=== PATIENT | female | born 1935 ===

== ENCOUNTER 2018-03-03 00:01 | Observation (INO) | payer MEDICARE ==
[2018-03-03 00:01] VITALS: BMI 21.2
--- NOTE | 2018-03-03 01:08 | ED PDOC ---
HPI: General Adult Time Seen by Provider: 03/03/18 00:09 Chief Complaint (Nursing): Flu-like Symptoms Chief Complaint (Provider): Body aches History Per: Patient History/Exam Limitations: no limitations Onset/Duration Of Symptoms: Days (x 3) Current Symptoms Are (Timing): Still Present Additional Complaint(s): 83 year old female with a history of asthma, arthritis and narcolepsy presents to the ED via EMS with diffuse body pain for the last 3 days. Patient denies having a headache, fever, nausea, vomiting or any injury. She also denies taking any pain or anti inflammatory medication. PMD: Dr. Eris Vargas Past Medical History Reviewed: Historical Data, Nursing Documentation, Vital Signs Vital Signs: Last Vital Signs Temp 99.8 F H 03/03/18 16:21 Pulse 83 03/03/18 16:21 Resp 20 03/03/18 16:21 BP 143/64 03/03/18 16:21 Pulse Ox 100 03/03/18 16:21 - Medical History PMH: Asthma, HTN, Hypercholesterolemia Denies: Depression, Chronic Kidney Disease - Surgical History Surgical History: Appendectomy - Family History Family History: States: Unknown Family Hx - Home Medications Home Medications: Ambulatory Orders Medication Instructions Recorded Armodafinil [Nuvigil 250 mg Tab] 250 mg PO DAILY 03/03/18 Cholecalciferol (Vitamin D3) 50,000 unit PO QWK 03/03/18 [Vitamin D3] Metoprolol Succinate XL [Toprol XL] 25 mg PO BID 03/03/18 Montelukast Sodium [Singulair] 10 mg PO DAILY 03/03/18 Omeprazole [Omeprazole] 40 mg PO DAILY 03/03/18 Simvastatin [Zocor] 20 mg PO DAILY 03/03/18 hydroCHLOROthiazide [Hydrodiuril] 25 mg PO DAILY 03/03/18 - Allergies Allergies/Adverse Reactions: Allergies Allergy/AdvReac Type Severity Reaction Status Date / Time aspirin Allergy ANAPHYLAXIS Verified 10/01/17 12:15 FISH Allergy ANAPHYLAXIS Verified 03/03/18 12:28 Fish Containing Products Allergy ANAPHYLAXIS Verified 03/03/18 12:28 fish derived Allergy ANAPHYLAXIS Verified 03/03/18 12:28 fish oil Allergy ANAPHYLAXIS Verified 03/03/18 12:28 peanut Allergy ANAPHYLAXIS Verified 10/01/17 12:15 Penicillins Allergy ANAPHYLAXIS Verified 10/01/17 12:15 Review of Systems ROS Statement: Except As Marked, All Systems Reviewed And Found Negative Constitutional: Positive for: Other (diffuse body aches). Negative for: Fever Gastrointestinal: Negative for: Nausea, Vomiting Neurological: Negative for: Headache Physical Exam - Reviewed Nursing Documentation Reviewed: Yes Vital Signs Reviewed: Yes - Physical Exam Appears: Positive for: Non-toxic, No Acute Distress Head Exam: Positive for: ATRAUMATIC, NORMAL INSPECTION, NORMOCEPHALIC Skin: Positive for: Normal Color, Warm, Dry Eye Exam: Positive for: EOMI, Normal appearance, PERRL Neck: Positive for: Normal, Painless ROM, Supple Cardiovascular/Chest: Positive for: Regular Rate, Rhythm. Negative for: Murmur Respiratory: Positive for: Normal Breath Sounds. Negative for: Wheezing, Respiratory Distress Gastrointestinal/Abdominal: Positive for: Normal Exam, Soft. Negative for: Tenderness Extremity: Positive for: Normal ROM. Negative for: Deformity Neurologic/Psych: Positive for: Alert, Oriented (x 3). Negative for: Motor/ Sensory Deficits - Laboratory Results Result Diagrams: 03/03/18 08:27 03/03/18 08:27 - ECG O2 Sat by Pulse Oximetry: 96 (RA) Pulse Ox Interpretation: Normal Medical Decision Making Medical Decision Makin:10 Impression: 83 y/o female with diffuse myalgias Initial Plan: --Labs --Tylenol 650 mg PO 01:27 --Labs are significant for depressed sodium and elevated CPK levels. Patient will be admitted for rhabdomyolysis and hyponatremia. Case was referred to Dr. Kruse. ---- Scribe Attestation: Documented by Madiha Fallon, acting as a scribe for Jose Elias Bradshaw MD Provider Scribe Attestation: All medical record entries made by the Scribe were at my direction and personally dictated by me. I have reviewed the chart and agree that the record accurately reflects my personal performance of the history, physical exam, medical decision making, and the department course for this patient. I have also personally directed, reviewed, and agree with the discharge instructions and disposition. Disposition - Clinical Impression Clinical Impression: Rhabdomyolysis, Hyponatremia - Patient ED Disposition Is Patient to be Admitted: Yes Discussed With : Behzad Kruse Doctor Will See Patient In The: Hospital - Disposition Disposition Time: 01:27 Condition: FAIR - Pt Status Changed To: Hospital Disposition Of: Inpatient - Admit Certification Admit to Inpatient:: After my assessment, the patient will require hospitalization for at least two midnights. This is because of the severity of symptoms shown, intensity of services needed, and/or the medical risk in this patient being treated as an outpatient.
[2018-03-03 01:11] LABS: BASO % 0.7 % (0.0-2.0); HEMOGLOBIN 12.6 g/dL (12.0-16.0); LYMPH # 1.1 K/uL (1.0-4.3); LYMPH % 27.1 % (20.0-40.0); MEAN CORPUSCULAR HEMOGLOBIN 32.2 pg (27.0-31.0); MEAN CORPUSCULAR HGB CONC 34.3 g/dL (33.0-37.0); MEAN PLATELET VOLUME 7.1 fl (7.2-11.7); MONO # 0.7 K/uL (0.0-0.8); MONO % 15.8 % (0.0-10.0); NEUT # 2.3 K/uL (1.8-7.0); NEUT % 56.4 % (50.0-75.0); NRBC % 0.2 % (0.0-0.0); RBC 3.9 Mil/uL (3.80-5.20); RED CELL DISTRIBUTION WIDTH 13.4 % (11.5-14.5); WHITE BLOOD COUNT 4.1 K/uL (4.8-10.8)
[2018-03-03 01:15] LABS: ALB/GLOB RATIO 1.4 (1.0-2.1); ALBUMIN 4.3 g/dL (3.5-5.0); ALT/SGPT 41 U/L (9-52); AST/SGOT 67 U/L (14-36); BLOOD UREA NITROGEN 20 mg/dl (7-17); CALCIUM 9.5 mg/dL (8.4-10.2); GFR AFRICAN-AMERICAN > 60; GFR NON-AFRICAN AMERICAN 60
[2018-03-03] MEDS ORDERED: Sodium Chloride 0.9% 1,000 ML IV STA (01:25)
[2018-03-03] MEDS ORDERED: Ergocalciferol 50,000 Intl Units Cap PO SCH (06:30)
[2018-03-03 08:54] LABS: HEMOGLOBIN 12.1 g/dL (12.0-16.0); MEAN CELL VOLUME 93.6 fl (81.0-99.0); MEAN CORPUSCULAR HEMOGLOBIN 32.7 pg (27.0-31.0); RBC 3.69 Mil/uL (3.80-5.20); RED CELL DISTRIBUTION WIDTH 13.4 % (11.5-14.5); WHITE BLOOD COUNT 3.4 K/uL (4.8-10.8)
[2018-03-03 09:00] LABS: ALB/GLOB RATIO 1.3 (1.0-2.1); ALBUMIN 3.6 g/dL (3.5-5.0); ALT/SGPT 41 U/L (9-52); AST/SGOT 62 U/L (14-36); BLOOD UREA NITROGEN 20 mg/dl (7-17); CALCIUM 8.9 mg/dL (8.4-10.2); GFR AFRICAN-AMERICAN > 60; GFR NON-AFRICAN AMERICAN 60; HDL CHOLESTEROL 33 MG/DL (30-70)
[2018-03-03 09:12] LABS: LDL CHOLESTEROL 78 mg/dL (0-129)
[2018-03-03 09:16] LABS: T4 6.51 ug/dl (5.5-11.0)
[2018-03-03] MEDS: Pantoprazole 40 mg EC Tab PO SCH (09:28)
--- NOTE | 2018-03-03 10:29 | RAD ---
Date of service: 03/03/2018 HISTORY: admit COMPARISON: No prior. FINDINGS: LUNGS: No active pulmonary disease. PLEURA: No significant pleural effusion identified, no pneumothorax apparent. CARDIOVASCULAR: Normal. OSSEOUS STRUCTURES: No significant abnormalities. VISUALIZED UPPER ABDOMEN: Normal. OTHER FINDINGS: None. IMPRESSION: No acute cardiopulmonary disease appreciated.
[2018-03-03 11:56] LABS: URINE BACTERIA MOD (<OCC); URINE BILIRUBIN NEGATIVE (NEGATIVE); URINE BLOOD NEGATIVE (NEGATIVE); URINE CLARITY SLIGHTY-CLOUDY (Clear); URINE COLOR YELLOW (YELLOW); URINE GLUCOSE (UA) NEG (Normal); URINE HYALINE CAST 0-2 /hpf (0-2); URINE LEUKOCYTE ESTERASE TRACE Leu/uL (Negative); URINE PROTEIN NEGATIVE (NEGATIVE); URINE UROBILINOGEN 0.2-1.0 mg/dL (0.2-1.0)
--- NOTE | 2018-03-03 12:31 | CARD ---
APPROVED REPORT Date of service: 03/03/2018 EKG Measurement Heart [id number] <Conclusion> Normal sinus rhythm T wave abnormality, consider anterior ischemia Abnormal ECG
--- NOTE | 2018-03-03 14:47 | CP.PCM.HP ---
History of Present Illness - History of Present Illness History of Present Illness: 83 y/o F, Multiple chronic medical disease likely Asthma, Hx. 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 Worsening symptoms: Slightly impaired mobility, unsteady gait. 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 Denied: fever, chills, headache, n/v/d, abdominal pain, urinary symptoms, CP, palpitations, SOB, cough, sick contact, recent travel out of [facility]. CXR: No active disease EKG: Normal sinus rhythm, T wave abnormality, consider anterior ischemia. Present on Admission - Present on Admission Any Indicators Present on Admission: No Review of Systems - Constitutional Constitutional: Malaise, Weakness - EENT Eyes: Other (negative) Ears: Other (negative) Nose/Mouth/Throat: Other (negative) - Cardiovascular Cardiovascular: Other (negative) - Respiratory Respiratory: Other (negative) - Gastrointestinal Gastrointestinal: Other (negative) - Genitourinary Genitourinary: Other (negative) - Musculoskeletal Musculoskeletal: Other (generalized body ache as per HPI) - Integumentary Integumentary: Other (negative) - Neurological Neurological: Abnormal Gait, Confusion - Psychiatric Psychiatric: Other (negative) - Endocrine Endocrine: Other (negative) - Hematologic/Lymphatic Hematologic: Other (negative) Past Patient History - Infectious Disease Hx of Infectious Diseases: None - Past Medical History & Family History Past Medical History?: Yes Pertinent Family History: Unknown - Past Social History Smoking Status: Never Smoked Alcohol: None Drugs: Denies Home Situation {Lives}: Alone - CARDIAC Hx Cardiac Disorders: Yes Hx Hypercholesterolemia: Yes Hx Hypertension: Yes - PULMONARY Hx Respiratory Disorders: Yes Hx Asthma: Yes - NEUROLOGICAL Hx Neurological Disorder: Yes HX Cerebrovascular Accident: Yes - HEENT Hx HEENT Problems: No - RENAL Hx Chronic Kidney Disease: No - ENDOCRINE/METABOLIC Hx Endocrine Disorders: No - HEMATOLOGICAL/ONCOLOGICAL Hx Blood Disorders: No - INTEGUMENTARY Hx Dermatological Problems: No - MUSCULOSKELETAL/RHEUMATOLOGICAL Hx Musculoskeletal Disorders: No Hx Falls: No - GASTROINTESTINAL Hx Gastrointestinal Disorders: No - GENITOURINARY/GYNECOLOGICAL Hx Genitourinary Disorders: No - PSYCHIATRIC Hx Psychophysiologic Disorder: No Hx Depression: No Hx Substance Use: No - SURGICAL HISTORY Hx Surgeries: Yes Hx Appendectomy: Yes - ANESTHESIA Hx Anesthesia: Yes Hx Anesthesia Reactions: No Meds Allergies/Adverse Reactions: Allergies Allergy/AdvReac Type Severity Reaction Status Date / Time aspirin Allergy ANAPHYLAXIS Verified 10/01/17 12:15 FISH Allergy ANAPHYLAXIS Verified 03/03/18 12:28 Fish Containing Products Allergy ANAPHYLAXIS Verified 03/03/18 12:28 fish derived Allergy ANAPHYLAXIS Verified 03/03/18 12:28 fish oil Allergy ANAPHYLAXIS Verified 03/03/18 12:28 peanut Allergy ANAPHYLAXIS Verified 10/01/17 12:15 Penicillins Allergy ANAPHYLAXIS Verified 10/01/17 12:15 Physical Exam - Constitutional Appears: No Acute Distress - Head Exam Head Exam: NORMAL INSPECTION - Eye Exam Eye Exam: EOMI, PERRL - ENT Exam ENT Exam: Normal Exam - Neck Exam Neck exam: Positive for: Normal Inspection - Respiratory Exam Respiratory Exam: NORMAL BREATHING PATTERN - Cardiovascular Exam Cardiovascular Exam: REGULAR RHYTHM - GI/Abdominal Exam GI & Abdominal Exam: Normal Bowel Sounds, Soft - Extremities Exam Extremities exam: Positive for: normal inspection - Back Exam Back exam: NORMAL INSPECTION - Neurological Exam Neurological exam: Alert Additional comments: Ox2, Forgetful, moves all extremities, follows commands. - Psychiatric Exam Psychiatric exam: Normal Affect - Skin Skin Exam: Normal Color, Warm Results - Vital Signs Recent Vital Signs: Last Vital Signs Temp 99.1 F 03/03/18 09:13 Pulse 75 03/03/18 09:13 Resp 20 03/03/18 09:13 BP 138/74 03/03/18 09:13 Pulse Ox 96 03/03/18 09:13 reviewed Mary Jo - Labs Result Diagrams: 03/03/18 08:27 03/03/18 08:27 Labs: Laboratory Results - last 24 hr 03/03/18 03/03/18 03/03/18 00:52 00:54 00:54 WBC 4.1 L RBC 3.90 Hgb 12.6 Hct 36.7 MCV 94.0 MCH 32.2 H MCHC 34.3 RDW 13.4 Plt Count 165 MPV 7.1 L Neut % (Auto) 56.4 Lymph % (Auto) 27.1 Polk % (Auto) 15.8 H Eos % (Auto) 0.0 Baso % (Auto) 0.7 Neut # (Auto) 2.3 Lymph # (Auto) 1.1 Polk # (Auto) 0.7 Eos # (Auto) 0.0 Baso # (Auto) 0.0 Sodium 128 L Potassium 4.2 Chloride 95 L Carbon Dioxide 20 L Anion Gap 17 BUN 20 H Creatinine 0.9 Est GFR ( Amer) > 60 Est GFR (Non-Af Amer) 60 POC Glucose (mg/dL) 104 Random Glucose 102 Lactic Acid Calcium 9.5 Total Bilirubin 0.7 AST 67 H D ALT 41 Alkaline Phosphatase 62 Total Creatine Kinase 492 H Total Protein 7.3 Albumin 4.3 Globulin 3.0 Albumin/Globulin Ratio 1.4 Triglycerides Cholesterol LDL Cholesterol Direct HDL Cholesterol Thyroxine (T4) TSH 3rd Generation Urine Color Urine Clarity Urine pH Ur Specific [place] Urine Protein Urine Glucose (UA) Urine Ketones Urine Blood Urine Nitrate Urine Bilirubin Urine Urobilinogen Ur Leukocyte Esterase Urine RBC (Auto) Urine Microscopic WBC Urine Bacteria Hyaline Casts 03/03/18 03/03/18 03/03/18 00:54 08:27 08:27 WBC 3.4 L RBC 3.69 L Hgb 12.1 Hct 34.6 MCV 93.6 MCH 32.7 H MCHC 35.0 RDW 13.4 Plt Count 171 MPV Neut % (Auto) Lymph % (Auto) [place] % (Auto) Eos % (Auto) Baso % (Auto) Neut # (Auto) Lymph # (Auto) [place] # (Auto) Eos # (Auto) Baso # (Auto) Sodium 132 Potassium 4.2 Chloride 100 Carbon Dioxide 21 L Anion Gap 15 BUN 20 H Creatinine 0.9 Est GFR ( Amer) > 60 Est GFR (Non-Af Amer) 60 POC Glucose (mg/dL) Random Glucose 90 Lactic Acid 0.6 L Calcium 8.9 Total Bilirubin 0.5 AST 62 H ALT 41 Alkaline Phosphatase 52 Total Creatine Kinase Total Protein 6.3 Albumin 3.6 Globulin 2.7 Albumin/Globulin Ratio 1.3 Triglycerides 154 H Cholesterol 165 LDL Cholesterol Direct 78 HDL Cholesterol 33 Thyroxine (T4) 6.51 TSH 3rd Generation 3.24 Urine Color Urine Clarity Urine pH Ur Specific [place] Urine Protein Urine Glucose (UA) Urine Ketones Urine Blood Urine Nitrate Urine Bilirubin Urine Urobilinogen Ur Leukocyte Esterase Urine RBC (Auto) Urine Microscopic WBC Urine Bacteria Hyaline Casts 03/03/18 03/03/18 09:56 11:30 WBC RBC Hgb Hct MCV MCH MCHC RDW Plt Count MPV Neut % (Auto) Lymph % (Auto) [place] % (Auto) Eos % (Auto) Baso % (Auto) Neut # (Auto) Lymph # (Auto) [place] # (Auto) Eos # (Auto) Baso # (Auto) Sodium Potassium Chloride Carbon Dioxide Anion Gap BUN Creatinine Est GFR ( Amer) Est GFR (Non-Af Amer) POC Glucose (mg/dL) Random Glucose Lactic Acid Calcium Total Bilirubin AST ALT Alkaline Phosphatase Total Creatine Kinase 431 H Total Protein Albumin Globulin Albumin/Globulin Ratio Triglycerides Cholesterol LDL Cholesterol Direct HDL Cholesterol Thyroxine (T4) TSH 3rd Generation Urine Color Yellow Urine Clarity Slighty-cloudy Urine pH 6.0 Ur Specific [place] 1.013 Urine Protein Negative Urine Glucose (UA) Neg Urine Ketones 20 Urine Blood Negative Urine Nitrate Positive H Urine Bilirubin Negative Urine Urobilinogen 0.2-1.0 Ur Leukocyte Esterase Trace Urine RBC (Auto) 3 Urine Microscopic WBC 4 Urine Bacteria Mod H Hyaline Casts 0-2 reviewed J.P. - EKG Data EKG comments: reviewed J.P. - Imaging and Cardiology Chest x-ray Status: Report reviewed by me (J.P.) Assessment & Plan (1) Chest pain Status: Acute Priority: High (2) HTN (hypertension) Status: Chronic Priority: Medium (3) Asthma Status: Chronic Priority: Medium (4) Dyslipidemia Status: Chronic Priority: Medium - Assessment and Plan (Free Text) Plan: Continue Cipro, Singulair, Toprol XL, Lipitor and rest of Tx., PT eval. - Date & Time Date: 03/03/18 Time: 12:15
[2018-03-03] MEDS: Ciprofloxacin 200mg/100ml D5W 100 ML IVPB SCH ×2 (15:00→20:54)
[2018-03-04 06:28] LABS: HEMOGLOBIN 10.5 g/dL (12.0-16.0); MEAN CELL VOLUME 93.8 fl (81.0-99.0); MEAN CORPUSCULAR HEMOGLOBIN 32.4 pg (27.0-31.0); MEAN CORPUSCULAR HGB CONC 34.5 g/dL (33.0-37.0); RBC 3.26 Mil/uL (3.80-5.20); RED CELL DISTRIBUTION WIDTH 13.3 % (11.5-14.5); WHITE BLOOD COUNT 3.8 K/uL (4.8-10.8)
[2018-03-04 07:06] LABS: BLOOD UREA NITROGEN 14 mg/dl (7-17); CALCIUM 8.5 mg/dL (8.4-10.2); GFR AFRICAN-AMERICAN > 60; GFR NON-AFRICAN AMERICAN > 60
[2018-03-04] MEDS: Ciprofloxacin 200mg/100ml D5W 100 ML IVPB SCH ×2 (08:48→21:00)
[2018-03-04] MEDS: Pantoprazole 40 mg EC Tab PO SCH (08:48)
--- NOTE | 2018-03-04 10:36 | PQF ---
PROVIDER RESPONSE TEXT: Dx mild Rhabdomyolysis and mild Hyponatremia REVIEWER QUERY TEXT: Conflicting Documentation Clarification A single mention of the dx. Rhabdomyolysis and Hyponatremia appears in the record. Please also document if the condition is: -- Confirmed and current -- Confirmed, treated and resolved -- Ruled out -- Other, please specify Total CK: 492->431->333 (reference range:30-135) Sodium:128->132->133 Chloride:95->100->105 Bun:20->20->14 ER MD : Labs are significant for depressed sodium and elevated CPK levels. Clinical Impression: Rhabdomyolysis, Hyponatremia H and P: to ER evaluation for Flu-like illness associated to generalized body pain. Hx Falls: No Assessment: (1) Chest pain Status: Acute (2) HTN (hypertension) Status: Chronic (3) Asthma Status: Chronic (4) Dyslipidemia Status: Chronic 03/03:Sodium Chloride 0.9% 1,000 ml IV 125 mls/hr Q 8hrs x one then discontinued The patient's Clinical Indicators include: xxxxxx Query created by: Dayanna Malcolm on 03/04/2018 8:54 AM PROVIDER RESPONSE TEXT: Chest Pain acute, non cardiac REVIEWER QUERY TEXT: Symptom Underlying Cause Please document the underlying diagnosis causing the patient?s documented symptom(s) of Chest Pain a fter the work up is completed OR: Unable to be further specified 03/03 EKG: Normal sinus rhythm :T wave abnormality, consider anterior ischemia Abnormal ECG H and P: to ER for evaluation of Flu-like illness associated to generalized body pain. Hx Falls: No Assessment: (1) Chest pain Status: Acute (2) HTN (hypertension) Status: Chronic (3) Asthma Status: Chronic (4) Dyslipidemia Status: Chronic . The patient's Clinical Indicators include: XXXXX Query created by: Dayanna Malcolm on 03/04/2018 8:59 AM PROVIDER RESPONSE TEXT: Asthma unable to determine REVIEWER QUERY TEXT: Asthma Specificity and Type 2 queries as follows: Asthma is documented in the Medical Record: please further clarify the followin.Severity: Associated with Exacerbation versus Stable 2.Type of asthma: such as: -- Mild intermittent -- Mild persistent -- Moderate persistent -- Severe persistent -- Other, please specify --Unable to determine The patient's Clinical Indicators include: xxx Query created by: Dayanna Malcolm on 03/04/2018 9:06 AM Electronically signed by: Behzad Kruse MD 03/04/2018 10:33 AM
[2018-03-04] MEDS: Sodium Chloride 0.9% 1,000 ML IV SCH ×2 (13:30→21:03)
--- NOTE | 2018-03-04 17:19 | CP.PCM.PN ---
Subjective - Date & Time of Evaluation Date of Evaluation: 03/04/18 Time of Evaluation: 11:10 - Subjective Subjective: F/U Chest pain. no C/P, no AD, denies myalgias, no joint pain Objective - Vital Signs/Intake and Output Vital Signs (last 24 hours): Temp Pulse Resp BP Pulse Ox 98.2 F 74 20 132/65 97 03/04/18 16:06 03/04/18 16:06 03/04/18 16:06 03/04/18 16:06 03/04/18 16:06 - Medications Medications: Current Medications Atorvastatin Calcium (Lipitor) 10 mg PO DAILY [facility] Last Admin: 03/04/18 08:49 Dose: 10 mg Ergocalciferol (Drisdol 50,000 Intl Units Cap) 50,000 cap PO QWK [facility] Ciprofloxacin (Cipro 200mg/100ml D5w) 100 mls @ 100 mls/hr IVPB Q12 [facility] PRN Reason: Protocol Last Admin: 03/04/18 08:48 Dose: Not Given Sodium Chloride (Sodium Chloride 0.9%) 1,000 mls @ 125 mls/hr IV .Q8H [facility] Stop: 03/05/18 13:23 Last Admin: 03/04/18 13:30 Dose: 125 mls/hr Metoprolol Tartrate (Lopressor) 25 mg PO BID@0900,2100 [facility] Last Admin: 03/04/18 08:49 Dose: 25 mg Montelukast Sodium (Singulair) 10 mg PO DAILY [facility] Last Admin: 03/04/18 08:48 Dose: 10 mg Pantoprazole Sodium (Protonix Ec Tab) 40 mg PO DAILY [facility] Last Admin: 03/04/18 08:48 Dose: 40 mg - Labs Labs: 03/04/18 06:00 03/04/18 06:00 - Constitutional Appears: No Acute Distress - Head Exam Head Exam: NORMAL INSPECTION - Eye Exam Eye Exam: PERRL - ENT Exam ENT Exam: Normal Exam - Neck Exam Neck Exam: Normal Inspection - Respiratory Exam Respiratory Exam: NORMAL BREATHING PATTERN - Cardiovascular Exam Cardiovascular Exam: REGULAR RHYTHM - GI/Abdominal Exam GI & Abdominal Exam: Soft, Normal Bowel Sounds - Extremities Exam Extremities Exam: Normal Inspection - Back Exam Back Exam: NORMAL INSPECTION - Neurological Exam Neurological Exam: Alert Additional comments: Ox2, forgetful, moves all extremities, follows commands. - Psychiatric Exam Psychiatric exam: Normal Affect - Skin Skin Exam: Normal Color, Warm Assessment and Plan (1) Chest pain Status: Acute (2) HTN (hypertension) Status: Chronic (3) Asthma Status: Chronic (4) Dyslipidemia Status: Chronic (5) UTI (urinary tract infection) Status: Acute - Assessment and Plan (Free Text) Plan: IVF , add Cipro,f/u U C-S , CK trending down, continue Lopressor, Protonix, Singulair, PT eval
[2018-03-05] MEDS: Sodium Chloride 0.9% 1,000 ML IV SCH (06:00)
[2018-03-05] MEDS: Ciprofloxacin 200mg/100ml D5W 100 ML IVPB SCH (08:36)
[2018-03-05] MEDS: Pantoprazole 40 mg EC Tab PO SCH (08:37)
[2018-03-05 08:41] VITALS: BP 135/68; PULSE 67; RESP 20; TEMP 98.2; O2SAT 95
--- NOTE | 2018-03-05 16:18 | CP.PCM.DIS ---
Provider - Provider Date of Admission: 03/03/18 01:26 Attending physician: Behzad Kruse MD Primary care physician: Eris Vargas DO Diagnosis - Discharge Diagnosis (1) Chest pain Status: Acute Priority: High (2) HTN (hypertension) Status: Chronic Priority: Medium (3) Asthma Status: Chronic Priority: Medium (4) Dyslipidemia Status: Chronic Priority: Medium (5) UTI (urinary tract infection) Status: Acute Hospital Course - Lab Results Lab Results: Most Recent Lab Values WBC 3.8 K/uL (4.8-10.8) L 03/04/18 06:00 RBC 3.26 Mil/uL (3.80-5.20) L 03/04/18 06:00 Hgb 10.5 g/dL (12.0-16.0) L 03/04/18 06:00 Hct 30.5 % (34.0-47.0) L 03/04/18 06:00 MCV 93.8 fl (81.0-99.0) 03/04/18 06:00 MCH 32.4 pg (27.0-31.0) H 03/04/18 06:00 MCHC 34.5 g/dL (33.0-37.0) 03/04/18 06:00 RDW 13.3 % (11.5-14.5) 03/04/18 06:00 Plt Count 166 K/uL (130-400) 03/04/18 06:00 MPV 7.1 fl (7.2-11.7) L 03/03/18 00:54 Neut % (Auto) 56.4 % (50.0-75.0) 03/03/18 00:54 Lymph % (Auto) 27.1 % (20.0-40.0) 03/03/18 00:54 Carbon % (Auto) 15.8 % (0.0-10.0) H 03/03/18 00:54 Eos % (Auto) 0.0 % (0.0-4.0) 03/03/18 00:54 Baso % (Auto) 0.7 % (0.0-2.0) 03/03/18 00:54 Neut # (Auto) 2.3 K/uL (1.8-7.0) 03/03/18 00:54 Lymph # (Auto) 1.1 K/uL (1.0-4.3) 03/03/18 00:54 Carbon # (Auto) 0.7 K/uL (0.0-0.8) 03/03/18 00:54 Eos # (Auto) 0.0 K/uL (0.0-0.7) 03/03/18 00:54 Baso # (Auto) 0.0 K/uL (0.0-0.2) 07 00:54 Sodium 133 mmol/l (132-148) 03/04/18 06:00 Potassium 3.7 MMOL/L (3.6-5.0) 03/04/18 06:00 Chloride 105 mmol/L (98-107) 03/04/18 06:00 Carbon Dioxide 20 mmol/L (22-30) L 03/04/18 06:00 Anion Gap 12 (10-20) 03/04/18 06:00 BUN 14 mg/dl (7-17) 03/04/18 06:00 Creatinine 0.8 mg/dl (0.7-1.2) 03/04/18 06:00 Est GFR ( Amer) > 60 03/04/18 06:00 Est GFR (Non-Af Amer) > 60 03/04/18 06:00 POC Glucose (mg/dL) 104 mg/dL (65-110) 03/03/18 00:52 Random Glucose 103 mg/dL (65-105) 03/04/18 06:00 Lactic Acid 0.6 MMOL/L (0.7-2.1) L 03/03/18 00:54 Calcium 8.5 mg/dL (8.4-10.2) 03/04/18 06:00 Total Bilirubin 0.5 mg/dl (0.2-1.3) 03/03/18 08:27 AST 62 U/L (14-36) H 03/03/18 08:27 ALT 41 U/L (9-52) 03/03/18 08:27 Alkaline Phosphatase 52 U/L (38-126) 03/03/18 08:27 Total Creatine Kinase 333 U/L (30-135) H 03/04/18 06:00 Total Protein 6.3 G/DL (6.3-8.2) 03/03/18 08:27 Albumin 3.6 g/dL (3.5-5.0) 03/03/18 08: Globulin 2.7 gm/dL (2.2-3.9) 03/03/18 08: Albumin/Globulin Ratio 1.3 (1.0-2.1) 03/03/18 08:27 Triglycerides 154 mg/DL (0-149) H 03/03/18 08:27 Cholesterol 165 mg/dL (0-199) 03/03/18 08:27 LDL Cholesterol Direct 78 mg/dL (0-129) 03/03/18 08: HDL Cholesterol 33 MG/DL (30-70) 03/03/18 08:27 Thyroxine (T4) 6.51 ug/dl (5.5-11.0) 03/03/18 08: TSH 3rd Generation 3.24 mIU/ML (0.46-4.68) 03/03/18 08:27 Urine Color Yellow (YELLOW) 03/03/18 11:30 Urine Clarity Slighty-cloudy (Clear) 03/03/18 11:30 Urine pH 6.0 (5.0-8.0) 03/03/18 11:30 Ur Specific [place] 1.013 (1.003-1.030) 03/03/18 11:30 Urine Protein Negative mg/dL (NEGATIVE) 03/03/18 11:30 Urine Glucose (UA) Neg mg/dL (Normal) 03/03/18 11:30 Urine Ketones 20 mg/dL (NEGATIVE) 03/03/18 11:30 Urine Blood Negative (NEGATIVE) 03/03/18 11:30 Urine Nitrate Positive (NEGATIVE) H 03/03/18 11:30 Urine Bilirubin Negative (NEGATIVE) 03/03/18 11:30 Urine Urobilinogen 0.2-1.0 mg/dL (0.2-1.0) 03/03/18 11:30 Ur Leukocyte Esterase Trace Darrell/uL (Negative) 03/03/18 11:30 Urine RBC (Auto) 3 /hpf (0-3) 03/03/18 11:30 Urine Microscopic WBC 4 /hpf (0-5) 03/03/18 11:30 Urine Bacteria Mod (<OCC) H 03/03/18 11:30 Hyaline Casts 0-2 /hpf (0-2) 03/03/18 11:30 Discharge Exam - Head Exam Head Exam: NORMAL INSPECTION Discharge Plan - Follow Up Plan Condition: FAIR Disposition: HOME/ ROUTINE Instructions: Rhabdomyolysis (DC), Hyponatremia (DC) Additional Instructions: pt. cleared for discharge to Home today by f/u with PMD in 1 week follow up with primary MD 1 week Referrals: Eris Vargas DO [Primary Care Provider] -
== END 2018-03-05 12:55 | disposition home or self-care (01) ==
LOC: H.ER 00:01 → H.ERHOLD 01:26 → INTOOBSV 01:26 → H.MEDSURG1 03:08
PROVIDERS: ADMIT Internal Medicine Pulmonary Disease; ATTEND Internal Medicine Pulmonary Disease
DX: R07.89 Other chest pain (principal); J45.909 Unspecified asthma, uncomplicated; I10 Essential (primary) hypertension; E78.00 Pure hypercholesterolemia, unspecified; Z86.73 Personal history of transient ischemic attack (TIA), and cerebral infarction without residual deficits; G47.419 Narcolepsy without cataplexy; E87.1 Hypo-osmolality and hyponatremia; M62.82 Rhabdomyolysis; M19.90 Unspecified osteoarthritis, unspecified site; E78.5 Hyperlipidemia, unspecified; N39.0 Urinary tract infection, site not specified; Z88.6 Allergy status to analgesic agent; Z91.013 Allergy to seafood
CPT/HCPCS: 36415; 71045; 80048; 80053; 80061; 81003; 82550; 82948; 83605; 84436; 84443; 85025; 85027; 93005; 97116; 97162; 99284; G0378; G8978; G8979; J0744; J7030